=== PATIENT | male | born 1940 | race Caucasian/White ===

== ENCOUNTER 2016-11-22 01:00 | Inpatient (IN) | payer OTHER ==
[~2016-11-22] VITALS: Ht 167.6 cm; Wt 93.4 kg
[~2016-11-22 01:00] MED LIST: AMLODIPINE BESY10 MG PO; AMOXICILLIN500 M2 PO; ATORVASTATIN CA20 M1 PO; AUGMENTIN 875875 MG PO; BACTRIM DS 8001 TAB PO; CIPRO 500MG TA500 MG PO; COZAAR50 M1 PO; FLOMAX0.4 M1 PO; LEVOTHYROXINE0.1 M1 PO; TRAMADOL50 MG PO
--- NOTE | 2016-11-22 13:41 | Operative Report ---
Operative/Inv Procedure Report Surgery Date: 11/22/16 Name of Procedure: Cystoscopy, laser lithotripsy of bladder stones, TURP Pre-Operative Diagnosis: Bladder stones and BPH Post-Operative Diagnosis: same Estimated Blood Loss: 50ml to 100ml Surgeon/Airport Refueling Handler: Rosas NICOLE MD,LISA Zhu Anesthesia: laryngeal mask airway Drains: 22 fr 3-way hematuria catheter for CBI Specimens: bladder stone fragments and prostate chips Complications: none Condition: stable Operative Indication: Recurrent UTI, bladder stones and BPH Operative/Procedure Note Note: The patient was taken to the cystoscopy room and identified. He was placed in supine position on the cystoscopy table in a timeout was executed appropriately with the patient awake. General anesthesia was induced via LMA. He was then placed in the dorsolithotomy position. Bimanual rectal exam revealed an enlarged prostate but no other abnormal pelvic masses. He was prepped and draped in usual fashion for cystoscopy. A surgical pause was executed appropriately. Continuous-flow cystoscope was then placed into the bladder under direct vision. There was trilobar prostatic hypertrophy with a prostatic urethra 4-4-1/2 cm. The bladder was normal except for multiple bladder stones. It was mildly trabeculated. The right ureteral orifice was normal. The left ureteral orifice was difficult to visualize. Using a 1000 holmium laser fiber the laser was used to fragment all of bladder stones of the small fragments. These were irrigated out of the bladder using Ellik evacuator. This point the bladder was left full and the cystoscope removed. 26 [place]an resectoscope sheath was placed into the bladder using obturator. The working element was inserted. Using the bladder neck to the proximal landmark and the verumontanum as a distal landmark the left lateral lobe of the prostate was resected between 1:00 and 5: 00 positions. Hemostasis is obtained electrocautery. Next the right lateral lobe of the prostate was resected between 11:00 and 7:00 positions using the same landmarks. Hemostasis was obtained electrocautery. Next the floor the prostatic urethra was resected between 5 and 7:00 positions again using same landmarks. Hemostasis was obtained electrocautery. Finally the roof prostatic fossa was resected between 11:00 and 1:00 positions using same landmarks. Prostate chips were irrigated from the bladder using Ellik evacuator. Hemostasis was obtained taken with electrocautery. At this point no significant bleeding was noted. The prostatic fossa appeared open. The bladder was left full and the resectoscope removed. A 22 [place] three-way hematuria catheter was placed and continuous bladder irrigation begun with light pink drainage. She tolerated the procedure well and as completion was taken to recovery room in stable condition. Findings: Multiple bladder stones and trilobar prostatic hypertrophy Discharge Disposition: PACU
[2016-11-22 16:00] VITALS: BP 136/58
[2016-11-22 22:26] VITALS: BP 130/60
[2016-11-23 05:45] VITALS: BP 150/70
--- NOTE | 2016-11-23 06:45 | PN- Urology ---
Subjective Subjective: Comfortable. No distress Objective Vital Signs and I&Os Vital Signs Date Time Temp Pulse Resp B/P Pulse O2 O2 Flow FiO2 Ox Delivery Rate 11/23 0600 95 Room Air 11/23 0545 98.0 61 20 150/70 95 Room Air 11/22 2226 97.7 65 18 130/60 95 Nasal Cannula 11/22 2200 94 Room Air 11/22 1600 94 Nasal 3.0L Cannula 11/22 1600 94 Nasal 3.0L Cannula 11/22 1600 97.6 55 16 136/58 94 Nasal 3.0L Cannula 11/22 1503 95 Nasal 3.0L Cannula Intake & Output 11/23 0800 11/23 0000 11/22 1600 11/22 0800 11/22 0000 11/21 1600 Intake Total 590 830 Output Total Balance 590 830 Intake, IV 350 350 Intake, Oral 240 480 Patient 206 lb Weight Abd: soft and non tender Genitalia: 3 way [address]. CBI running at slow to moderate rate with clear drainage Assessment/Plan Assessment/Plan Imp: Stable s/p laser litho of bladder stones and TURP Plan: d/c CBI. Continue worrell Hep lock IV Continue ceftriaxone Will remove worrell in AM if urine is clear Core Measures/Miscellaneous Venous Thromboembolism VTE Risk Factors: Age > 40 VTE Contraindications: No Contraindications VTE Prophylaxis Ordered Inpt: Early Ambulation VTE Diagnosis: No Beta Kunal Is Beta Kunal a Home Med? Yes Antibiotics Is Patient on Antibiotics? Yes
[2016-11-23 15:45] VITALS: BP 140/60
[2016-11-23 22:14] VITALS: BP 142/64
--- NOTE | 2016-11-24 07:38 | PN- Urology ---
Subjective Subjective: Comfortable. No distress Objective Vital Signs and I&Os Vital Signs Date Time Temp Pulse Resp B/P Pulse O2 O2 Flow FiO2 Ox Delivery Rate 11/24 0600 94 Room Air 11/23 2214 98.1 57 20 142/64 93 Room Air 11/23 2200 93 Room Air 11/23 1545 97.6 62 20 140/60 93 11/23 1415 Room Air 11/23 1400 96 Room Air 11/23 0901 126/82 11/23 0901 126/82 Intake & Output 11/24 0800 11/24 0000 11/23 1600 11/23 0800 11/23 0000 11/22 1600 Intake Total 296 922 0260 590 830 Output Total 1750 775 Balance -1510 480 575 590 830 Intake, IV 350 350 Intake, Oral 999 943 3237 240 480 Number 1 Bowel Movements Output, Urine 1750 775 Patient 206 lb Weight Abd: soft and non tender Genitalia: worrell in place. CBI is off. Urine clear Assessment/Plan Assessment/Plan Imp: Stable s/p TURP Plan: If voids adequately discharge home this afternoon No abx Office f/u in 2 weeks Core Measures/Miscellaneous Venous Thromboembolism VTE Risk Factors: Age > 40 VTE Contraindications: No Contraindications VTE Prophylaxis Ordered Inpt: Early Ambulation VTE Diagnosis: No Beta Kunal Is Beta Kunal a Home Med? Yes Antibiotics Is Patient on Antibiotics? Yes
--- NOTE | 2016-11-24 07:45 | Discharge Summary ---
Visit Information Visit Dates Admission Date: 11/22/1700 Discharge Date: 11/24/16 Hospital Course Course Attending Physician: Talon FARAH,LISA Zhu Primary Care Physician: JEANIE GONZALES DO Hospital Course: He underwent cystoscopy, laser lithotripsy of bladder stones and TURP. Post op course was uncomplicated and he was discharged to be followed in the office in about 2 weeks Complications: none Allergies: Coded Allergies: chlorpromazine (UNKNOWN 11/02/16) haloperidol (From HALDOL) (UNKNOWN 11/02/16) Significant Procedures: Laser lithotripsy of bladder stones and TURp Disposition Summary Disposition Principal Diagnosis: BPH Additional Diagnosis: Bladder stones and recurrent UTI Discharge Disposition: home or self care Discharge Instructions General Discharge Information Code Status: Full Code Patient's Diet: regular Patient's Activity: light only Follow-Up Instructions/Appts: Office visit in 2-3 weeks. Patient instructed to call to schedule Medications at Discharge Discharge Medications: Stop taking the following medications: Amoxicillin (Amoxicillin) 500 MG CAPSULE ORAL TWICE DAILY Continue taking these medications: Amlodipine Besylate (Amlodipine Besylate) 10 MG TABLET 1 Tablet ORAL DAILY Qty = 30 Levothyroxine Sodium (Levothyroxine Sodium) 0.1 MG TAB 1 Tablet ORAL DAILY Qty = 30 Losartan Potassium (Cozaar) 50 MG TABLET 1 Tablet ORAL DAILY Comments: DOCUMENTED PER CMR DURING PRE-SX INTERVIEW Atorvastatin Calcium (Atorvastatin Calcium) 20 MG TABLET 1 Tablet ORAL DAILY Comments: DOCUMENTED PER CMR DURING PRE-SX INTERVIEW Tamsulosin HCl (Flomax) 0.4 MG CAP.ER.24H 1 Capsule ORAL DAILY Comments: DOCUMENTED PER CMR DURING PRE-SX INTERVIEW Copies To: JEANIE GONZALES DO
[2016-11-24 09:56] VITALS: BP 152/60
== END 2016-11-24 11:19 | DRG 714 ==
LOC: ENRESERVTM → ENRESERVDT → STS 01:00 → 2NA 13:35 → ENPENDDIS 13:35 → PACUH 13:35 → 2NA 14:43
PROVIDERS: ADMIT Urology
PROC: 0VT08ZZ Resection of Prostate, Via Natural or Artificial Opening Endoscopic (ICD-10-PCS; principal; 2016-11-22)
PROC: 0TCB8ZZ Extirpation of Matter from Bladder, Via Natural or Artificial Opening Endoscopic (ICD-10-PCS; principal; 2016-11-22)
DX: N40.0 Benign prostatic hyperplasia without lower urinary tract symptoms (principal); N21.0 Calculus in bladder
CPT/HCPCS: 2NAP; 81001; 82355; 87086; 88305; J0696; J1100; J1644; J2405